=== PATIENT | female | born 1995 | race Caucasian/White ===

== ENCOUNTER 2025-02-25 10:00 | Observation (INO) ==
[2025-02-25 11:19] VITALS: RESP 20; TEMP 97.7
[2025-02-25] MEDS: LABETALOL HCL IV 5 MG/ML 20ML IV STA ×3 (11:27→13:29)
[2025-02-25] MEDS: BETAMETH SOD PHOS/ACETATE IA 6 MG/ML IM SCH (11:30)
[2025-02-25] MEDS: MAG SULFATE 4GM BOLUS FROM BAG IV ONE (11:52)
[2025-02-25 11:53] LABS: Uric Acid 5.5 mg/dl (2.6-7.2)
--- NOTE | 2025-02-25 12:15 | History & Physical Report ---
Date of Service February 25, 2025 Assessment & Plan (1) Pre-eclampsia, severe, third trimester: Plan: Magnesium sulfate 4 gram loading dose with 2 gram/hour drip [facility] Labetalol [place] [facility] [place] (2) Gestational diabetes mellitus: Plan: Continue Lantus as ordered Admission and Anticipated Discharge Date Admission Date: February 25, 2025 History of Present Illness Chief Complaint: headache in Primary Care Provider: Renan Germain MD 29 F P0000 at 30.1 weeks seen in ER for headache and elevated BP and transferred to L&D fo w/u. BP in severe range with 3+ proteinuria in triage. Has history of migraine headache but this headache felt different and started Tuesday and went away yesterday and came back today with light sensitivity. Denies any abdominal pain, RUQ pain, nausea or vomiting, leakage of fluid or bleeding. Has been feeling good movement with no contractions noted. Has noted some recent swelling in her face and fingers. Has gestational diabetes with well controlled sugars on Lantus 15 units at hs. Allergies Allergy/AdvReac Type Severity Reaction Status Date / Time No Known Allergies Allergy Unverified 09/17/24 09:09 Home Medications Medication Instructions Recorded Confirmed Type levothyroxine 150 mcg PO DAILY 09/11/24 02/25/25 History albuterol sulfate 0.63 mg/3 mL 0.63 mg inhalation Q6H PRN 01/28/25 02/25/25 History solution for nebulization sob/wheezing albuterol sulfate 90 mcg/actuation 2 puff inhalation Q4H PRN 01/28/25 02/25/25 History aerosol inhaler sob/wheezing aspirin 81 mg tablet,delayed 81 mg PO DAILY 01/28/25 02/25/25 History release budesonide-formoterol HFA 160 2 puff inhalation BID 01/28/25 02/25/25 History mcg-4.5 mcg/actuation aerosol inhaler (Symbicort) ondansetron HCl 4 mg tablet 4 mg PO Q8H PRN n/v 01/28/25 02/25/25 History sumatriptan succinate 50 mg tablet 50 mg PO UD PRN Migraine Headache 01/28/25 02/25/25 History escitalopram oxalate 20 mg tablet 20 mg PO DAILY 02/25/25 02/25/25 History fluticasone propionate 50 2 spray intranasal DAILY 02/25/25 02/25/25 History mcg/actuation nasal spray,suspension insulin glargine 100 unit/mL (3 15 unit subcut HS 02/25/25 02/25/25 History mL) subcutaneous pen (Basaglar KwikPen U-100 Insulin) loratadine 10 mg tablet (Claritin) 10 mg PO DAILY 02/25/25 02/25/25 History vit no.95-ferrous 1 tab PO DAILY 02/25/25 02/25/25 History fumarate 28 mg-folic acid 800 mcg tablet () Patient History Medical History Blue sclerae syndrome Gestational diabetes mellitus Migraines Depression H/O Jennifer thyroiditis Hypothyroidism Asthma Surgical History [place] teeth removed Family History Mother Depression Sister Depression Social History Smoking Status: Never smoker Hx Alcohol Use: No Hx Substance Use: No Preferred Language: [place] Communication Ability: Effective Net Development Manager Required: No Beliefs That Will Affect Care: None marital status: Current Living Situation: Spouse Other Information That Helps Us Care for You: No Feels Safe at Home: Yes Safety Concerns: Feels Safe At This Time Assistive Devices: None OB History Gestational diabetes on insulin SERVICE ORDER TAKER History neg Review of Systems All systems reviewed & are unremarkable except as noted in HPI & below Physical Exam Constitutional: WD/WN, vitals as above Eyes: PERRL, conjunctivae normal, anicteric sclerae Respiratory: normal respiratory effort, lungs clear to auscultation Cardiovascular: RRR, no murmur, no edema Gastrointestinal (Abdomen): no RUQ pain noted. Abdomen soft and non-tender. Musculoskeletal: Extremities: extremities normal to inspection Skin: no rashes, warm and dry Neurologic: patellar DTR's 2+ bilat, sensation intact no hyperreflexes noted Psychiatric: A+Ox3, euthymic affect Genitourinary: OB Exam Monitor Tracing: + external FHT monitor used, + external uterine monitor used, + category I and + normal FHT variability Results & Data Vital Signs (Past 12 Hours) Vital Signs Temp Pulse Resp BP O2 Del Method 02/25/25 11:52 61 02/25/25 11:52 188/93 H 02/25/25 11:48 63 02/25/25 11:48 188/90 H 02/25/25 11:37 70 02/25/25 11:37 186/81 H 02/25/25 11:28 86 02/25/25 11:28 224/106 H 02/25/25 11:03 65 02/25/25 11:03 177/107 H 02/25/25 10:47 74 02/25/25 10:47 171/95 H 02/25/25 10:42 36.5 C 74 20 171/95 H Room Air 02/25/25 10:32 73 177/94 H Laboratory Results Laboratory Results - last 48 hr 02/25/25 02/25/25 11:06 12:09 POC Glucose 82 Uric Acid 5.5 Lactate Dehydrogenase 141 Diagnostic Findings 02/25/25 02/25/25 11:06 12:09 POC Glucose 82 Uric Acid 5.5 Lactate Dehydrogenase 141 (2) Gestational diabetes mellitus Gestational diabetes mellitus control: insulin-controlled Trimester: third trimester Qualified Code(s): O24.414 - Gestational diabetes mellitus in , insulin controlled
[2025-02-25 12:31] VITALS: PULSE 73
[2025-02-25] MEDS: MAGNESIUM SULFATE / WTR 40 GM/1,000 ML BAG IV SCH (12:31)
[2025-02-25] MEDS: LABETALOL HCL IV 5 MG/ML 20ML IV ONE (13:26)
[2025-02-25] MEDS: MAGNESIUM SULFATE 40GM / WTR 1,000 ML BAG IV ONE (13:28)
[2025-02-25 13:29] VITALS: BP 170/99
== END 2025-02-25 12:55 | disposition home or self-care (01) | DRG 833 ==
LOC: OPB 10:00 → 4S4 10:10 → OPB 10:35 → 4S1 10:36 → INTOOBSV 11:24